=== PATIENT | male | born 1955 | race American Indian/Alaskan Native ===

== ENCOUNTER 2016-11-15 02:32 | Emergency (ER) | payer OTHER ==
[2016-11-15 03:45] LABS: Anion Gap 15 mmol/L; Blood Urea Nitrogen 15 mg/dL (9-20); Calcium 9.3 mg/dL (8.4-10.2); Carbon Dioxide 28 mmol/L (22-30); Chloride 101.7 mmol/L (98-107); Glucose 102 mg/dL (75-100); Potassium 4.4 mmol/L (3.6-5.0); Sodium 140 mmol/L (137-145)
[2016-11-15 03:54] LABS: Basophils % (Auto) 0.6 % (0.0-1.8); Eosinophils % (Auto) 3.4 % (0.0-4.3); Hematocrit 46.8 % (35.5-45.6); Hemoglobin 15.6 gm/dl (11.8-15.2); Mean Corpuscular HGB Conc 33 % (32-34); Mean Corpuscular Hemoglobin 31 pg (28-32); Mean Corpuscular Volume 91 fl (84-94); Platelet Count 207 K/mm3 (140-440); Red Blood Count 5.12 M/mm3 (3.65-5.03); Red Cell Distribution Width 15.4 % (13.2-15.2); White Blood Count 9.2 K/mm3 (4.5-11.0)
[2016-11-15] MEDS ORDERED: FLEXERIL PO ONE (07:23)
--- NOTE | 2016-11-15 07:28 | Emergency Department Report ---
ED Chest Pain HPI - General Chief Complaint: Chest Pain Stated Complaint: CP Time Seen by Provider: 11/15/16 07:17 Source: patient, RN notes reviewed Mode of arrival: Ambulatory Limitations: No Limitations - History of Present Illness Initial Comments: 61-year-old male presents to the emergency department complaining of left side pain and back pain. Patient states pain awoke him from sleep at approximately midnight. Patient states the left side pain has been intermittent. The back pain is separate and he states it is been constant. Pain is described as aching in nature. Pain does not radiate. He denies shortness of breath, dizziness, diaphoresis, nausea, or vomiting. There are no other complaints. MD Complaint: chest pain -: Sudden, During the night Time: 00:00 Onset: awoke with symptoms Pain Location: left chest Pain Radiation: none Severity: mild Severity scale (0 -10): 0 Quality: aching Consistency: now resolved Improves With: nothing Worsens With: nothing re: denies: nausea, vomting, diaphoresis, dyspnea Treatments Prior to Arrival: none Aspirin use within the Past 7 Days: (1) Yes - Related Data Home Medications Medication Instructions Recorded Confirmed Last Taken Cilostazol [Pletal] 100 mg PO BID 11/15/16 11/15/16 11/14/16 Lisinopril/Hydrochlorothiazide 1 tab PO QDAY 11/15/16 11/15/16 11/14/16 [Zestoretic 20-12.5 mg] Pravastatin (Nf) [Pravachol] 40 mg PO QHS 11/15/16 11/15/16 11/14/16 Previous Rx's Medication Instructions Recorded Last Taken Type Cyclobenzaprine [Flexeril] 10 mg PO TID PRN #20 tablet 11/15/16 Unknown Rx Allergies Allergy/AdvReac Type Severity Reaction Status Date / Time clopidogrel bisulfate Allergy Hives Verified 11/15/16 03:04 [From Plavix] ANN score - Ann Score Age > 65: (0) No Aspirin use within the Past 7 Days: (1) Yes 3 or more CAD Risk Factors: (0) No 2 or more Angina events in past 24 hrs: (0) No Known CAD with more than 50% Stenosis: (0) No Elevated Cardiac Markers: (0) No ST Deviation Greater than 0.5mm: (0) No ANN Score: 1 ED Review of Systems ROS: Stated complaint: CP Other details as noted in HPI Comment: All other systems reviewed and negative Cardiovascular: chest pain Musculoskeletal: back pain ED Past Medical Hx - Past Medical History Previous Medical History?: Yes Hx Hypertension: Yes Additional medical history: "Blockage in the leg" - Surgical History Past Surgical History?: No - Family History Family history: no significant - Social History Smoking Status: Former Smoker Substance Use Type: None - Medications Home Medications: Home Medications Medication Instructions Recorded Confirmed Last Taken Type Cilostazol [Pletal] 100 mg PO BID 11/15/16 11/15/16 11/14/16 History Cyclobenzaprine [Flexeril] 10 mg PO TID PRN #20 tablet 11/15/16 Unknown Rx Lisinopril/Hydrochlorothiazide 1 tab PO QDAY 11/15/16 11/15/16 11/14/16 History [Zestoretic 20-12.5 mg] Pravastatin (Nf) [Pravachol] 40 mg PO QHS 11/15/16 11/15/16 11/14/16 History ED Physical Exam - General Limitations: No Limitations General appearance: alert, in no apparent distress - Head Head exam: Present: atraumatic, normocephalic - Eye Eye exam: Present: normal appearance, PERRL, EOMI - ENT ENT exam: Present: normal exam, normal orophraynx, mucous membranes moist - Neck Neck exam: Present: normal inspection, full ROM. Absent: tenderness - Respiratory Respiratory exam: Present: normal lung sounds bilaterally. Absent: respiratory distress, chest wall tenderness - Cardiovascular Cardiovascular Exam: Present: regular rate, normal rhythm, normal heart sounds - GI/Abdominal GI/Abdominal exam: Present: soft, normal bowel sounds. Absent: distended, tenderness - Extremities Exam Extremities exam: Present: normal inspection, full ROM. Absent: tenderness - Back Exam Back exam: Present: normal inspection, full ROM. Absent: tenderness - Neurological Exam Neurological exam: Present: alert, oriented X3. Absent: motor sensory deficit - Skin Skin exam: Present: warm, dry, intact ED Course Vital Signs 11/15/16 11/15/16 11/15/16 03:05 03:42 04:00 Temperature 98.4 F Pulse Rate 58 L 58 L Respiratory 15 Rate Blood Pressure 152/101 123/82 O2 Sat by Pulse 96 95 96 Oximetry 11/15/16 11/15/16 11/15/16 04:13 04:30 04:46 Temperature 98.2 F Pulse Rate 56 L Respiratory 11 L 20 Rate Blood Pressure 132/87 O2 Sat by Pulse 97 98 Oximetry 11/15/16 11/15/16 11/15/16 05:00 05:31 06:00 Temperature Pulse Rate 59 L 58 L 58 L Respiratory 16 14 11 L Rate Blood Pressure 125/80 105/63 152/93 O2 Sat by Pulse 95 92 99 Oximetry 11/15/16 06:31 Temperature Pulse Rate 64 Respiratory 12 Rate Blood Pressure 154/93 O2 Sat by Pulse 96 Oximetry ED Medical Decision Making - Lab Data Result diagrams: 11/15/16 03:12 11/15/16 03:12 - EKG Data -: EKG Interpreted by Me EKG shows normal: sinus rhythm, axis, intervals, QRS complexes, ST-T waves Rate: bradycardia - EKG Data When compared to previous EKG there are: previous EKG unavailable Interpretation: normal EKG - Medical Decision Making Lab results reviewed and discussed with the patient. Patient reports feeling better following oral Flexeril. Patient will be discharged home at this time to follow up with his primary care physician. - Differential Diagnosis muscle spasm, chest wall pain, atypical chest pain Critical care attestation.: If time is entered above; I have spent that time in minutes in the direct care of this critically ill patient, excluding procedure time. ED Disposition Clinical Impression: Muscle spasm of back Disposition: DISCHARGED TO HOME OR SELFCARE Is pt being admited?: No Condition: Stable Instructions: Muscle Spasm (ED) Additional Instructions: Take all medications as directed. Be sure to follow up with your doctor. If symptoms worsen, or if new symptoms develop, return to the emergency department. Prescriptions: Cyclobenzaprine [Flexeril] 10 mg PO TID PRN #20 tablet PRN Reason: Muscle Spasm Referrals: KECIA WILEY MD [Primary Care Provider] - 3-5 Days Time of Disposition: 09:22
[2016-11-15 09:29] VITALS: BP 135/83
== END 2016-11-15 09:29 | disposition home or self-care (01) ==
LOC: ED 02:32
DX: M62.830 Muscle spasm of back (principal); I10 Essential (primary) hypertension; Z87.891 Personal history of nicotine dependence; Z88.8 Allergy status to other drugs, medicaments and biological substances
CPT/HCPCS: 36415; 80048; 84484; 85025; 93005; 93010; 99284